=== PATIENT | male | born 1940 | race Caucasian/White ===

== ENCOUNTER 2017-04-27 22:41 | Observation (INO) ==
[2017-04-27] MEDS ORDERED: 0.9 % Sodium Chloride 1,000 ML IVC ONE ×2 (22:44→23:55)
[2017-04-27] MEDS ORDERED: Azithromycin 500 MG in D5% in Water 250 ML IVPB ONE (22:44)
[2017-04-27] MEDS ORDERED: Ipratropium/Albuterol Neb 3 ML IH ONE (22:46)
--- NOTE | 2017-04-27 22:48 | Emergency Department Note ---
Disposition Clinical Impression: Community acquired pneumonia Disposition: Home, Self-Care Condition: Fair Referrals: NONE,PCP [Primary Care Provider] - Forms: ED Satisfaction Letter Time of Disposition: 01:14 ([facility]) SOB HPI - General Chief Complaint: ED Shortness of Breath/Dyspnea Stated Complaint: SOB Time Seen by Provider: 04/27/17 22:43 Source: patient, EMS Mode of arrival: EMS Limitations: physical limitation (due to dyspnea), age Nursing Notes Reviewed: Yes Vital Signs Reviewed: Yes - History of Present Illness Pt Subjective Complaint: shortness of breath, cough Onset (ago): day(s) (1) Context: recent illness Severity: severe Consistency/Duration: gradually worsening Improves with: nothing Worsens with: exertion Known history of: COPD, congestive heart failure, recurrent pneumonia Associated symptoms: Reports: fever, cough, wheezing, sputum production. Denies : chest pain, pain with inspiration, orthopnea, lower extremity pain, polyuria, polydipsia, parasthesias, palpitations, hemoptysis, diaphoresis, nausea/vomiting , syncope, abdominal pain, rash, sense of impending doom Treatment prior to arrival: bronchodilator Cough present: Yes Cough Description: Involuntary, Productive, Strong Cough Frequency: Intermittent Sputum production: Yes Sputum Amount: Moderate Sputum Color: Yellow - Related Data Home Medications Medication Instructions Recorded Confirmed Bisacodyl [Woman's Laxative] 5 mg PO DAILY PRN 04/27/17 04/27/17 Clopidogrel [Plavix] 75 mg PO DAILY 04/27/17 04/27/17 Docusate [Colace] 100 mg PO BID 04/27/17 04/27/17 HYDROcodone/Acet 5/325 mg [[place] 2 tab PO DAILY PRN 04/27/17 04/27/17 5-325 mg] Levothyroxine [Synthroid] 150 mcg PO DAILY 04/27/17 04/27/17 MOM Conc [Milk of Magnesia Conc] 30 ml PO DAILY PRN 04/27/17 04/27/17 Nortriptyline [Pamelor] 25 mg PO DAILY 04/27/17 04/27/17 Phenytoin Sodium Extended 400 mg PO DAILY 04/27/17 04/27/17 [Phenytek] Pramipexole [Mirapex] 0.125 mg PO DAILY 04/27/17 04/27/17 Sertraline [Zoloft] 100 mg PO DAILY 04/27/17 04/27/17 Vit C/Vit E AC/Lut/Mineral 1 1 each PO BID 04/27/17 04/27/17 [Prosight with Lutein Capsule] traZODone [TraZODone] 25 mg PO DAILY 04/27/17 04/27/17 Allergies Allergy/AdvReac Type Severity Reaction Status Date / Time No Known Allergies Allergy Verified 09/26/15 10:21 All systems ED: reviewed and negative except as stated. Review of Systems: As Per HPI Constitutional: Reports: fever, weakness. Denies: chills Eyes: Denies: eye pain, eye discharge ENT ED: Reports: congestion Cardiovascular: Reports: chest pain, dyspnea on exertion. Denies: palpitations Respiratory: Reports: cough, dyspnea, wheezes, sputum production Gastrointestinal: Denies: abdominal pain, nausea, vomiting Genitourinary: Denies: urgency, dysuria Integumentary: Denies: rash, abrasion Neurological: Reports: weakness. Denies: headache Psychiatric: Denies: anxiety Endocrine: Denies: fatigue Hematological/Lymphatic: Denies: easy bleeding Allergic/Immunologic: Denies: facial swelling Past Medical History - Past Medical History Attestation: Yes The following information was validated with the patient. Source: patient, old records reviewed, nursing notes reviewed Medical history: Reports: COPD, CVA, hyperlipidemia, hypertension, thyroid disease Psychiatric history: Reports: anxiety - Social History Smoking Status: Current every day smoker Alcohol use: Reports: occasionally Drug use: Reports: none Physical Exam - General Limitations: no limitations General appearance: alert, in no apparent distress - Head Head exam: atraumatic, normocephalic, normal inspection - Eye Eye exam: Present: normal appearance, PERRL, EOMI - ENT ENT exam: normal exam, normal oropharynx, mucous membranes moist, normal external ear exam - Neck Neck exam: Present: normal inspection, full ROM, trachea midline - Chest Chest inspection: Present: normal inspection, symmetric chest wall rise - Respiratory Respiratory exam: Present: wheezes (and rhonci), prolonged expiratory phase, other (wet cough on exam) - Cardiovascular Cardiovascular exam: Present: regular rate, normal rhythm, normal heart sounds - Abdominal Exam Abdominal exam: Present: soft, Non-Tender, normal bowel sounds. Absent: mass, pulsatile mass - Extremities Exam Extremities exam: Present: other (Left arm and left leg paralysis right arm right leg for range of motion no prominent edema no calf pain or tenderness) - Expanded Lower Extremity Exam Neurovascular/Tendon exam: Present: normal capillary refill, normal fine/light touch Gait: observed and normal - Back Exam Back exam: Present: normal inspection, full ROM. Absent: muscle spasm - Neurological Exam Neurological exam: Present: alert, oriented X3, CN II-XII intact - Psychiatric Psychiatric exam: Present: normal affect, normal mood - Skin Skin exam: Present: warm, dry, intact, normal color Course Course Narrative: Patient seen and examined septic workup was done on the patient patient was started on antibiotics appropriate for sepsis with 2 g of Rocephin and 500 mg of Zithromax patient was then admitted his remained normotensive here still remains tachycardic but this may be secondary to the aerosol treatments and also the fever facial anticipate admission to service of Vital Signs Temperature 101.1 F H 04/27/17 22:45 Pulse Rate 104 04/27/17 22:45 Respiratory Rate 24 04/27/17 22:45 Blood Pressure 176/93 04/27/17 22:45 O2 Sat by Pulse Oximetry 98 04/27/17 22:45 Temperature 101.5 F H 04/28/17 00:55 Pulse Rate 104 04/28/17 00:55 Respiratory Rate 20 04/28/17 00:55 Blood Pressure 118/72 04/28/17 00:55 O2 Sat by Pulse Oximetry 96 04/28/17 00:55 Oxygen Delivery Oxygen Delivery Nasal Cannula Shortness of Breath/Dyspnea - Differential Diagnosis Likely: acute exacerbation of chronic obstructive airways disease, congestive heart failure, pneumonia - Medical Records Medical records reviewed: Yes I reviewed the patient's medical records. - Lab Data Lab results reviewed: Yes I reviewed the patient's lab results. Result diagrams: 04/27/17 23:35 04/27/17 23:35 Lab Results 04/27/17 04/27/17 04/27/17 Range/Units 23:35 23:35 23:35 WBC 14.7 H (4.3-11.1) K/mcL RBC 4.97 (4.19-5.50) M/mcL Hgb 14.9 (12.9-16.9) g/dL Hct 44.6 (37.5-50.1) % MCV 89.7 (83.0-100.0) fL MCH 30.0 (28.0-33.3) pg MCHC 33.4 (31.6-35.5) g/dL RDW 14.1 (11.5-14.5) % Plt Count 235 (140-400) K/mcL MPV 10.8 (9.4-12.4) fL Immature Gran % 0.3 (0-4) % Seg Neutrophils % 86.6 % Lymphocytes % 6.7 % Monocytes % 5.7 % Eosinophils % 0.5 % Basophils % 0.2 % Neutrophils # 12.7 H (1.6-8.9) K/mcL Lymphocytes # 1.0 (0.6-4.6) K/mcL Monocytes # 0.8 (0.0-1.3) K/mcL Eosinophils # 0.1 (0.0-0.6) K/mcL Basophils # 0.0 (0.0-0.2) K/mcL PT (9.4-12.1) Seconds INR APTT 29.9 (26.0-36.0) Seconds VBG Lactic Acid (0.5-2.2) mmol/L Sodium (136-145) mEq/L Potassium (3.5-4.5) mEq/L Chloride (98-109) mEq/L Carbon Dioxide (19-29) mEq/L BUN (8-26) mg/dL Creatinine (0.72-1.25) mg/dL Est GFR ( Amer) (> 60) Est GFR (Non-Af Amer) (> 60) BUN/Creatinine Ratio (6-26) Glucose (70-99) mg/dL Calculated Osmolality (280-300) Calcium (8.6-10.8) mg/dL Total Bilirubin (0.2-1.2) mg/dL AST (5-34) Units/L ALT (0-55) Units/L Alkaline Phosphatase (38-126) Units/L Troponin I (0-0.03) ng/mL B-Natriuretic Peptide 295 H (0-100) pg/mL Serum Total Protein (6.0-8.3) g/dL Albumin (3.5-5.0) g/dL Globulin (2.4-3.5) g/dL Albumin/Globulin Ratio (1.1-2.2) TSH (0.350-4.840) mcIU/mL Phenytoin (10-20) mcg/mL 04/27/17 04/27/17 04/27/17 Range/Units 23:35 23:35 23:35 WBC (4.3-11.1) K/mcL RBC (4.19-5.50) M/mcL Hgb (12.9-16.9) g/dL Hct (37.5-50.1) % MCV (83.0-100.0) fL MCH (28.0-33.3) pg MCHC (31.6-35.5) g/dL RDW (11.5-14.5) % Plt Count (140-400) K/mcL MPV (9.4-12.4) fL Immature Gran % (0-4) % Seg Neutrophils % % Lymphocytes % % Monocytes % % Eosinophils % % Basophils % % Neutrophils # (1.6-8.9) K/mcL Lymphocytes # (0.6-4.6) K/mcL Monocytes # (0.0-1.3) K/mcL Eosinophils # (0.0-0.6) K/mcL Basophils # (0.0-0.2) K/mcL PT 12.1 (9.4-12.1) Seconds INR 1.1 APTT (26.0-36.0) Seconds VBG Lactic Acid (0.5-2.2) mmol/L Sodium 137 (136-145) mEq/L Potassium 4.1 (3.5-4.5) mEq/L Chloride 103 (98-109) mEq/L Carbon Dioxide 22 (19-29) mEq/L BUN 20 (8-26) mg/dL Creatinine 0.87 (0.72-1.25) mg/dL Est GFR ( Amer) > 60 (> 60) Est GFR (Non-Af Amer) > 60 (> 60) BUN/Creatinine Ratio 23 (6-26) Glucose 128 H (70-99) mg/dL Calculated Osmolality 288 (280-300) Calcium 9.2 (8.6-10.8) mg/dL Total Bilirubin 0.2 (0.2-1.2) mg/dL AST 20 (5-34) Units/L ALT 29 (0-55) Units/L Alkaline Phosphatase 249 H (38-126) Units/L Troponin I 0.00 (0-0.03) ng/mL B-Natriuretic Peptide (0-100) pg/mL Serum Total Protein 7.9 (6.0-8.3) g/dL Albumin 3.2 L (3.5-5.0) g/dL Globulin 4.7 H (2.4-3.5) g/dL Albumin/Globulin Ratio 0.7 L (1.1-2.2) TSH (0.350-4.840) mcIU/mL Phenytoin (10-20) mcg/mL 04/27/17 04/27/17 Range/Units 23:35 23:35 WBC (4.3-11.1) K/mcL RBC (4.19-5.50) M/mcL Hgb (12.9-16.9) g/dL Hct (37.5-50.1) % MCV (83.0-100.0) fL MCH (28.0-33.3) pg MCHC (31.6-35.5) g/dL RDW (11.5-14.5) % Plt Count (140-400) K/mcL MPV (9.4-12.4) fL Immature Gran % (0-4) % Seg Neutrophils % % Lymphocytes % % Monocytes % % Eosinophils % % Basophils % % Neutrophils # (1.6-8.9) K/mcL Lymphocytes # (0.6-4.6) K/mcL Monocytes # (0.0-1.3) K/mcL Eosinophils # (0.0-0.6) K/mcL Basophils # (0.0-0.2) K/mcL PT (9.4-12.1) Seconds INR APTT (26.0-36.0) Seconds VBG Lactic Acid 2.6 H (0.5-2.2) mmol/L Sodium (136-145) mEq/L Potassium (3.5-4.5) mEq/L Chloride (98-109) mEq/L Carbon Dioxide (19-29) mEq/L BUN (8-26) mg/dL Creatinine (0.72-1.25) mg/dL Est GFR ( Amer) (> 60) Est GFR (Non-Af Amer) (> 60) BUN/Creatinine Ratio (6-26) Glucose (70-99) mg/dL Calculated Osmolality (280-300) Calcium (8.6-10.8) mg/dL Total Bilirubin (0.2-1.2) mg/dL AST (5-34) Units/L ALT (0-55) Units/L Alkaline Phosphatase (38-126) Units/L Troponin I (0-0.03) ng/mL B-Natriuretic Peptide (0-100) pg/mL Serum Total Protein (6.0-8.3) g/dL Albumin (3.5-5.0) g/dL Globulin (2.4-3.5) g/dL Albumin/Globulin Ratio (1.1-2.2) TSH 2.764 (0.350-4.840) mcIU/mL Phenytoin 13.0 (10-20) mcg/mL - Radiology Data Radiology results reviewed: Yes I reviewed the patient's radiology results. ITS Impressions Chest X-Ray 04/27/17 22:43 IMPRESSION: 1. Mild vascular congestion/interstitial prominence as before. 2. Stable cardiomegaly. 3. Bibasilar opacities are felt to represent atelectatic changes rather than consolidation/pneumonia. D/ / Holden Patterson MD / Holden Patterson MD Interpreting Provider: Holden Patterson MD ITS Impressions Chest X-Ray 04/27/17 22:43 IMPRESSION: 1. Mild vascular congestion/interstitial prominence as before. 2. Stable cardiomegaly. 3. Bibasilar opacities are felt to represent atelectatic changes rather than consolidation/pneumonia. D/ / Holden Patterson MD / Holden Patterson MD Interpreting Provider: Holden Patterson MD Chest CT 04/28/17 00:19 IMPRESSION: 1. No focal airspace disease. 2. Moderate emphysema. 3. Moderate hiatal hernia. D/ / Fabián Ledezma MD / Fabián Ledezma MD Interpreting Provider: Fabián Ledezma MD - EKG Data EKG attestation: Yes I reviewed and interpreted this EKG. EKG results narrative: Sinus tach left ventricular hypertrophy rate 113 OH 190 QRS 113 QT 329 axis -20 Critical Care Time Critical Care Time: Yes Total Critical Care Time: 35 Attestation: Critical care performed:35 mins for meeting the sepsis criteria and managing fluids and antibiotics and discussion with family and attending phycian for admission Time is exclusive of separately billable procedures. Time includes: direct patient care, patient reassessment, coordination of patient care, interpretation of data (laboratory data, radiology data, and respiratory data), review of patient's medical records, medical consultation and documentation of patient care. Procedures included in critical care time: Procedures excluded from critical care time:
[2017-04-27 23:46] LABS: Basophils % 0.2 %; Eosinophils # 0.1 K/mcL (0.0-0.6); Eosinophils % 0.5 %; Hematocrit 44.6 % (37.5-50.1); Hemoglobin 14.9 g/dL (12.9-16.9); Immature Granulocytes % 0.3 % (0-4); Lymphocytes % 6.7 %; Mean Corpuscular HGB Conc 33.4 g/dL (31.6-35.5); Mean Corpuscular Volume 89.7 fL (83.0-100.0); Mean Platelet Volume 10.8 fL (9.4-12.4); Monocytes # 0.8 K/mcL (0.0-1.3); Monocytes % 5.7 %; Platelet Count 235 K/mcL (140-400); Red Blood Count 4.97 M/mcL (4.19-5.50); Red Cell Distribution Width 14.1 % (11.5-14.5); Segmented Neutrophils % 86.6 %
[2017-04-27 23:48] LABS: Neutrophils # 12.7 K/mcL (1.6-8.9)
[2017-04-28] LABS: INR 1.1; Prothrombin Time 12.1 Seconds (9.4-12.1)
[2017-04-28 00:03] LABS: Alanine Aminotransferase 29 Units/L (0-55); Albumin 3.2 g/dL (3.5-5.0); Albumin/Globulin Ratio 0.7 (1.1-2.2); Alkaline Phosphatase 249 Units/L (38-126); Aspartate Amino Transferase 20 Units/L (5-34); BUN/Creatinine Ratio 23 (6-26); Bilirubin,Total 0.2 mg/dL (0.2-1.2); Blood Urea Nitrogen 20 mg/dL (8-26); Calcium 9.2 mg/dL (8.6-10.8); Carbon Dioxide 22 mEq/L (19-29); Chloride 103 mEq/L (98-109); Globulin 4.7 g/dL (2.4-3.5); Glucose 128 mg/dL (70-99); Osmolality,Calculated 288 (280-300); Potassium 4.1 mEq/L (3.5-4.5); Sodium 137 mEq/L (136-145); Total Protein 7.9 g/dL (6.0-8.3); eGFR For African Americans > 60 (> 60); eGFR For Non-African Americans > 60 (> 60)
[2017-04-28 00:23] LABS: Thyroid Stimulating Hormone 2.764 mcIU/mL (0.350-4.840)
[2017-04-28] MEDS ORDERED: Ibuprofen 600 MG TABLET PO ONE ×2 (01:20→02:13)
[2017-04-28] MEDS ORDERED: MOM Conc 10 ML UD.LIQ PO PRN (02:13)
[2017-04-28] MEDS ORDERED: 0.9 % Sodium Chloride 1,000 ML IVC SCH (02:13)
[2017-04-28] MEDS ORDERED: *HR* HYDROcodone/Acet 5/325 mg TABLET PO PRN (02:13)
[2017-04-28] MEDS ORDERED: Acetaminophen 325 MG TABLET PO PRN (02:13)
[2017-04-28] MEDS ORDERED: 0.9 % Sodium Chloride 1,000 ML IVC ONE (02:13)
[2017-04-28] MEDS ORDERED: Ibuprofen 400 MG TABLET PO PRN (02:13)
[2017-04-28] MEDS ORDERED: Naloxone 0.4 MG/ML INJ IVP PRN (02:13)
[2017-04-28] MEDS: Ipratropium/Albuterol Neb 3 ML IH PRN (03:55)
[2017-04-28 09:00] LABS: Hematocrit 36.7 % (37.5-50.1); Immature Granulocytes % 0.5 % (0-4); Lymphocytes % 8.7 %; Mean Corpuscular HGB Conc 32.7 g/dL (31.6-35.5); Mean Corpuscular Hemoglobin 30.4 pg (28.0-33.3); Mean Corpuscular Volume 92.9 fL (83.0-100.0); Mean Platelet Volume 10.8 fL (9.4-12.4); Platelet Count 176 K/mcL (140-400); Red Blood Count 3.95 M/mcL (4.19-5.50); Red Cell Distribution Width 14.3 % (11.5-14.5); Segmented Neutrophils % 81.4 %
[2017-04-28] MEDS ORDERED: traZODone 50 MG TABLET PO SCH (09:00)
[2017-04-28 09:01] LABS: Basophils % 0.3 %; Eosinophils % 0.1 %; Lymphocytes # 1.3 K/mcL (0.6-4.6); Monocytes # 1.3 K/mcL (0.0-1.3); Neutrophils # 12.1 K/mcL (1.6-8.9)
[2017-04-28 09:18] LABS: BUN/Creatinine Ratio 24 (6-26); Blood Urea Nitrogen 17 mg/dL (8-26); Calcium 7.9 mg/dL (8.6-10.8); Carbon Dioxide 20 mEq/L (19-29); Chloride 107 mEq/L (98-109); Glucose 117 mg/dL (70-99); Osmolality,Calculated 287 (280-300); Sodium 137 mEq/L (136-145); eGFR For African Americans > 60 (> 60); eGFR For Non-African Americans > 60 (> 60)
[2017-04-28] MEDS: Multivit/Ca/Min/Fe/FA 1 TAB TABLET PO SCH ×3 (11:00→20:27)
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
[2017-04-28] MEDS ORDERED: traZODone 50 MG TABLET PO PRN (16:07)
[2017-04-28] MEDS: Lactobacillus 1 EACH CAP.SPRINK PO SCH (20:27)
[2017-04-28] MEDS ORDERED: Azithromycin 500 MG in D5% in Water 250 ML IVPB SCH (23:00)
[2017-04-29] MEDS: Ipratropium/Albuterol Neb 3 ML IH PRN (01:51)
[2017-04-29 05:01] LABS: Basophils % 0.2 %; Eosinophils # 0.1 K/mcL (0.0-0.6); Eosinophils % 0.5 %; Hematocrit 37.6 % (37.5-50.1); Hemoglobin 12.4 g/dL (12.9-16.9); Immature Granulocytes % 0.4 % (0-4); Lymphocytes # 1.3 K/mcL (0.6-4.6); Lymphocytes % 11.2 %; Mean Corpuscular Hemoglobin 29.9 pg (28.0-33.3); Mean Corpuscular Volume 90.6 fL (83.0-100.0); Mean Platelet Volume 10.9 fL (9.4-12.4); Monocytes # 0.7 K/mcL (0.0-1.3); Monocytes % 6.6 %; Platelet Count 197 K/mcL (140-400); Red Blood Count 4.15 M/mcL (4.19-5.50); Red Cell Distribution Width 14.2 % (11.5-14.5); Segmented Neutrophils % 81.1 %
[2017-04-29 05:04] LABS: Neutrophils # 9.1 K/mcL (1.6-8.9)
[2017-04-29 05:15] LABS: BUN/Creatinine Ratio 16 (6-26); Blood Urea Nitrogen 11 mg/dL (8-26); Calcium 8.7 mg/dL (8.6-10.8); Carbon Dioxide 20 mEq/L (19-29); Chloride 106 mEq/L (98-109); Glucose 109 mg/dL (70-99); Osmolality,Calculated 288 (280-300); Potassium 3.6 mEq/L (3.5-4.5); Sodium 139 mEq/L (136-145); eGFR For African Americans > 60 (> 60); eGFR For Non-African Americans > 60 (> 60)
[2017-04-29] MEDS: Lactobacillus 1 EACH CAP.SPRINK PO SCH (08:02)
[2017-04-29] MEDS: Multivit/Ca/Min/Fe/FA 1 TAB TABLET PO SCH (08:02)
--- NOTE | 2017-04-29 10:02 | Discharge Summary ---
Date of Encounter: 04/29/17 Time of Encounter: 09:50 - Discharge Diagnosis (1) Neutrophilic leukocytosis Priority: Primary Status: Acute - Discharge Medications Prescriptions: Cefuroxime PO [Ceftin] 500 mg PO Q12HR 3 Days Azithromycin [Zithromax] 250 mg PO DAILY 3 Days Lactobacillus [Culturelle] 1 each PO BID 3 Days Home Medications: Bisacodyl [Woman's Laxative] 5 mg PO DAILY PRN 04/27/17 [History] Clopidogrel [Plavix] 75 mg PO DAILY 04/27/17 [History] Docusate [Colace] 100 mg PO BID 04/27/17 [History] HYDROcodone/Acet 5/325 mg [[place] 5-325 mg] 2 tab PO DAILY PRN 04/27/17 [History] Levothyroxine [Synthroid] 150 mcg PO DAILY 04/27/17 [History] MOM Conc [MILK OF MAGNESIA conc] 30 ml PO DAILY PRN 04/27/17 [History] Nortriptyline [Pamelor] 25 mg PO DAILY 04/27/17 [History] Phenytoin Sodium Extended [Phenytek] 400 mg PO DAILY 04/27/17 [History] Pramipexole [Mirapex] 0.125 mg PO DAILY 04/27/17 [History] Sertraline [Zoloft] 100 mg PO DAILY 04/27/17 [History] Vit C/Vit E AC/Lut/Mineral 1 [Prosight with Lutein Capsule] 1 each PO BID [History] traZODone [TraZODone] 25 mg PO DAILY 04/27/17 [History] Azithromycin [Zithromax] 250 mg PO DAILY 3 Days 04/29/17 [Rx] Cefuroxime PO [Ceftin] 500 mg PO Q12HR 3 Days 04/29/17 [Rx] Lactobacillus [Culturelle] 1 each PO BID 3 Days 04/29/17 [Rx] Allergies/Adverse Reactions: 3 Allergy/AdvReac Type Severity Reaction Status Date / Time No Known Allergies Allergy Verified 09/26/15 10:21 Date of admission: 04/28/17 01:35 Primary care physician: Turner Pimentel M.D. Consults: 04/28/17 03:29 Consult to Nutrition [CONS] Routine Comment: Consulting Provider: NUTRITION Reason for Dietary Consult: MST Score Consult to Gang Sawyer [CONS] Routine Reason for SW Consult: return to [facility] - Patient Status Disposition: Transfer SNF Condition: Fair Functional capacity at discharge: wheelchair bound Overall status at discharge: patient is progressing back to baseline - Discharge Instructions - Diet and Activity Activity: resume usual activities as tolerated Diet: advance to your usual diet Hospital course: Mr. Moody is a 76 year old male who was sent to emergency room for evaluation after alf staff noted him to have fever and cough. He was evaluated in emergency room and felt to have possible pneumonia. He was admitted to [facility] for ongoing care needs. Initial orders were written by the emergency room physician. I saw him on April 28 and performed a history and physical. He was started on Rocephin and Zithromax in emergency room. I added lactobacillus. Chest CT showed no infiltrate. A UA C/S was ordered but could not be collected because of incontinence. He remained afebrile after admission. WBC improved to 11.2 on April 29 with slight left shift present. When I saw him on April 29 he appeared stable for discharge back to the SNF. He will follow with me there. He will continue with antibiotic and probiotic for 3 days after discharge. - Time Spent with Patient Total time spent providing and/or coordinating discharge services: - Constitutional Vitals: Temp Pulse Resp BP Pulse Ox 97.5 F L 98 22 161/77 95 04/29/17 07:22 04/29/17 07:22 04/29/17 07:22 04/29/17 07:22 04/29/17 07:22
--- NOTE | 2017-04-29 10:07 | Physician Discharge Referral ---
ExtendedCare Referral Info Transfer To: [facility] Provider in Charge: Margarito Provider in Charge after Transfer: PCP (Margarito) - Diagnosis (1) Neutrophilic leukocytosis Priority: Primary Status: Acute Prognosis: Fair Aware of Diagnosis: Patient Aware of Prognosis: Patient - Transfer Medications Prescriptions: Cefuroxime PO [Ceftin] 500 mg PO Q12HR 3 Days Azithromycin [Zithromax] 250 mg PO DAILY 3 Days Lactobacillus [Culturelle] 1 each PO BID 3 Days Home Medications: Bisacodyl [Woman's Laxative] 5 mg PO DAILY PRN 04/27/17 [History] Clopidogrel [Plavix] 75 mg PO DAILY 04/27/17 [History] Docusate [Colace] 100 mg PO BID 04/27/17 [History] HYDROcodone/Acet 5/325 mg [[place] 5-325 mg] 2 tab PO DAILY PRN 04/27/17 [History] Levothyroxine [Synthroid] 150 mcg PO DAILY 04/27/17 [History] MOM Conc [MILK OF MAGNESIA conc] 30 ml PO DAILY PRN 04/27/17 [History] Nortriptyline [Pamelor] 25 mg PO DAILY 04/27/17 [History] Phenytoin Sodium Extended [Phenytek] 400 mg PO DAILY 04/27/17 [History] Pramipexole [Mirapex] 0.125 mg PO DAILY 04/27/17 [History] Sertraline [Zoloft] 100 mg PO DAILY 04/27/17 [History] Vit C/Vit E AC/Lut/Mineral 1 [Prosight with Lutein Capsule] 1 each PO BID [History] traZODone [TraZODone] 25 mg PO DAILY 04/27/17 [History] Azithromycin [Zithromax] 250 mg PO DAILY 3 Days 04/29/17 [Rx] Cefuroxime PO [Ceftin] 500 mg PO Q12HR 3 Days 04/29/17 [Rx] Lactobacillus [Culturelle] 1 each PO BID 3 Days 04/29/17 [Rx] Allergies/Adverse Reactions: 3 Allergy/AdvReac Type Severity Reaction Status Date / Time No Known Allergies Allergy Verified 09/26/15 10:21 - Respiratory Orders Oxygen / L per min (2 L/m by nasal cannula when necessary to keep sats greater than 90%) Smoking Cessation: Smoking cessation has been advised. For more information, call the [place] Tobacco Quit Line at 7-605-HCGB-NOW. - Mobility Orders Chair - Rehabiliation Orders Rehab Potential: Fair - Diet Orders Regular CERTIFICATION: I certify that the transfer of the above named patient to an Extended Care Facility is necessary for the continuing treatment of the diagnosis listed. The above information is true and accurate reflection of patient's current condition. Confidential - Redisclosure prohibited without a patient's written consent.
[2017-04-29 11:49] VITALS: BP 171/70
--- NOTE | 2017-04-30 15:57 | Electrocardiograph Report ---
[address] [address] Test Date: 2017-04-27 Pat Name: Ronnie Moody Department: [id number] Room: [facility] Gender: M Culinary Intern: [id number] 1940 Requested By: Rocio Watters Order Number: [id number] Reading MD: Juanjose Hughes MD Measurements Intervals [place] Rate: 113 P: 11 ND: 191 QRS: -20 QRSD: 113 T: 81 QT: 329 QTc: 396 Interpretive Statements SINUS TACHYCARDIA LEFT VENTRICULAR HYPERTROPHY AND ST-T CHANGE Electronically Signed On 04-30-2017 15:55:22 EDT by Juanjose Hughes MD
== END 2017-04-29 12:46 ==
LOC: INPPIK 22:41 → EMEROOPIK 22:41 → INPPIK 04-28 02:12
PROVIDERS: ADMIT Internal Medicine; ATTEND Internal Medicine

== ENCOUNTER 2017-10-01 18:57 | Inpatient (IN) ==
--- NOTE | 2017-10-01 19:06 | Emergency Department Note ---
Disposition Clinical Impression: Influenza A, Acute exacerbation of chronic obstructive airways disease, Elevated troponin Disposition: Admitted As Inpatient Condition: Fair Referrals: Turner Pimentel MD [Primary Care Provider] - Forms: ED Satisfaction Letter SOB HPI - General Chief Complaint: ED Shortness of Breath/Dyspnea Stated Complaint: fever efrain Time Seen by Provider: 10/01/17 19:00 Source: patient Mode of arrival: ambulatory Limitations: no limitations Nursing Notes Reviewed: Yes Vital Signs Reviewed: Yes - History of Present Illness Patient presents from extended care facility with complaint of fever shortness of breath and cough. Patient tells me he normally wears oxygen and does not feel short of breath except when he coughs. He says he had a fever and a dry cough for about 2 days and it is not getting better. Denies any chest pain belly pain or other complaints. Family adds the patient fell on Sunday injuring his right hip and would like that x-rayed as well Pt Subjective Complaint: shortness of breath, cough Onset (ago): day(s) (2) Severity: moderate Consistency/Duration: intermittent Improves with: nothing Worsens with: nothing Known history of: COPD Associated symptoms: Reports: fever, cough. Denies: chest pain, sputum production, palpitations, nausea/vomiting, abdominal pain Treatment prior to arrival: oxygen, other (500ml fluid bolus) Cough Description: Involuntary Cough Frequency: Intermittent Sputum production: No - Related Data Home Medications Medication Instructions Recorded Confirmed Bisacodyl [Woman's Laxative] 10 mg PO DAILY PRN 04/27/17 10/01/17 Clopidogrel [Plavix] 75 mg PO DAILY 04/27/17 10/01/17 Docusate [Colace] 100 mg PO BID 04/27/17 10/01/17 HYDROcodone/Acet 5/325 mg [[place] 2 tab PO DAILY PRN 04/27/17 10/01/17 5-325 mg] Levothyroxine [Synthroid] 175 mcg PO DAILY 04/27/17 10/01/17 MOM Conc [MILK OF MAGNESIA conc] 30 ml PO DAILY PRN 04/27/17 10/01/17 Nortriptyline [Pamelor] 25 mg PO DAILY 04/27/17 10/01/17 Phenytoin Sodium Extended 400 mg PO DAILY 04/27/17 10/01/17 [Phenytek] Pramipexole [Mirapex] 0.125 mg PO DAILY 04/27/17 10/01/17 Sertraline [Zoloft] 100 mg PO DAILY 04/27/17 10/01/17 Vit C/Vit E AC/Lut/Mineral 1 1 each PO BID 04/27/17 10/01/17 [Prosight with Lutein Capsule] traZODone [TraZODone] 25 mg PO DAILY 04/27/17 10/01/17 Acetaminophen [Non-Aspirin Extra 500 mg PO Q6H 10/01/17 10/01/17 Strength] Dextromethorphan HBr [Robitussin] 15 mg PO TID 10/01/17 10/01/17 OLANZapine [Zyprexa] 5 mg PO HS 10/01/17 10/01/17 Allergies Allergy/AdvReac Type Severity Reaction Status Date / Time No Known Allergies Allergy Verified 09/26/15 10:21 All systems ED: reviewed and negative except as stated. Review of Systems: As Per HPI Constitutional: Reports: as per HPI, fever Eyes: Denies: eye pain, eye discharge, vision change ENT ED: Denies: ear pain, throat pain, dental pain, hearing loss, epistaxis, congestion, dysphagia Cardiovascular: Denies: chest pain, palpitations, dyspnea on exertion, edema, syncope Respiratory: Reports: as per HPI, cough Gastrointestinal: Denies: abdominal pain, nausea, vomiting, diarrhea, constipation, hematemesis, melena, hematochezia Genitourinary: Denies: urgency, dysuria, frequency, hematuria Musculoskeletal: Denies: back pain, neck pain, arthralgia, myalgia Integumentary: Denies: rash, abrasion, lesions Neurological: Denies: headache, weakness, numbness, paresthesias, confusion, abnormal gait, vertigo Psychiatric: Denies: anxiety, depression, suicidal thoughts, homicidal thoughts , auditory hallucinations, visual hallucinations Endocrine: Denies: fatigue Hematological/Lymphatic: Denies: easy bleeding, easy bruising Allergic/Immunologic: Denies: facial swelling, urticaria Past Medical History - Past Medical History Attestation: Yes The following information was validated with the patient. Source: patient Medical history: Reports: COPD, CVA, hyperlipidemia, hypertension, thyroid disease Psychiatric history: Reports: anxiety - Social History Smoking Status: Current every day smoker Smokeless Tobacco Status: No Alcohol use: Reports: occasionally Drug use: Reports: none Physical Exam - General Limitations: no limitations General appearance: alert, in no apparent distress - Head Head exam: atraumatic, normocephalic, normal inspection - Eye Eye exam: Present: normal appearance, PERRL, EOMI - ENT ENT exam: normal exam, normal oropharynx, mucous membranes moist - Neck Neck exam: Present: normal inspection, full ROM, trachea midline - Chest Chest inspection: Present: normal inspection, symmetric chest wall rise - Respiratory Respiratory exam: Present: normal lung sounds bilaterally - Cardiovascular Cardiovascular exam: Present: regular rate, normal rhythm, normal heart sounds - Abdominal Exam Abdominal exam: Present: soft, Non-Tender. Absent: tenderness, distention, guarding, rebound, rigidity - Extremities Exam Extremities exam: Present: normal inspection - Neurological Exam Neurological exam: Present: alert, oriented X3 - Psychiatric Psychiatric exam: Present: normal affect, normal mood - Skin Skin exam: Present: warm, dry, intact Course Course Narrative: Patient was signed out to me by the off-going physician, Dr. León. [facility], shortness of breath and fever. Patient received steroids and DuoNeb in the ED and labs and EKG were obtained. Patient did apparently have some T-wave inversions on his EKG although he denies any chest pain. Laboratory studies did reveal that he is positive for influenza A. He was started on Tamiflu. Troponin was elevated at 0.9. I suspect this is likely strain from his current illness including COPD exacerbation as well as the influenza. He apparently also complained of some right hip pain from falling from the toilet a few days ago. An initial x-ray showed a questionable femoral neck fracture however follow-up CT scan did not reveal any fracture. Patient is not having any current pain at this time. Given his positive flu, chronic medical conditions that place him at risk for complications from influenza and elevated troponin he would benefit from admission and monitoring. Patient and family are in agreement. I spoke to the hospitalist foundation director, Dr. Pimentel, who is also the patient's PCP, who has agreed to admit the patient. Shortness of Breath/Dyspnea - Differential Diagnosis Likely: acute exacerbation of chronic obstructive airways disease - Medical Records Medical records reviewed: Yes I reviewed the patient's medical records. - Lab Data Lab results reviewed: Yes I reviewed the patient's lab results. Result diagrams: 10/01/17 19:28 10/01/17 19:28 - Radiology Data Radiology results reviewed: Yes I reviewed the patient's radiology results. ITS Impressions Chest X-Ray 10/01/17 19:07 IMPRESSION: Low lung volume study showing bibasilar airspace disease, likely atelectasis. D/ / Tabby Rosales Cha, MD / Tabby Rosales Cha, MD Interpreting Provider: Tabby Rosales Cha, MD Hip X-Ray 10/01/17 19:23 IMPRESSION: Questionable nondisplaced fracture of the femoral neck. Further evaluation with MRI would be helpful. D/ / Tabby Rosales Cha, MD / Tabby Rosales Cha, MD Interpreting Provider: Tabby Rosales Cha, MD Hip CT 10/01/17 20:01 IMPRESSION: Mild degenerative changes right hip. No acute fracture. D/ / Yamini Alvarado MD / Yamini Alvarado MD Interpreting Provider: Yamini Alvarado MD - EKG Data EKG attestation: Yes I reviewed and interpreted this EKG. EKG results narrative: EKG shows sinus rhythm with occasional PVC. He has anterior lateral T-wave inversion rate is 92 bpm MO interval of 181 ms QRS duration 118 ms R axis of -3 degrees QTc interval 453 ms QT interval is 404 ms S.B.A.R. - S.B.A.R. Situation: Demographics Background: Presenting Complaint Assessment: Vital Signs, Course and respsone to treatment, Exam Concerns, Patient/Family Expectation, Pertinant Lab Results, Outstanding Labs S.B.A.R. Report Given to: Dr. Long SArtiB.AChapo Repor Time: 19:00
[2017-10-01] MEDS ORDERED: methylPREDNISolone 125 MG/2 ML VIAL IVP ONE (19:09)
[2017-10-01] MEDS ORDERED: Ipratropium/Albuterol Neb 3 ML IH ONE (19:09)
[2017-10-01 19:37] LABS: Basophils % 0.1 %; Hematocrit 39.9 % (37.5-50.1); Hemoglobin 12.9 g/dL (12.9-16.9); Immature Granulocytes % 0.4 % (0-4); Lymphocytes # 0.8 K/mcL (0.6-4.6); Mean Corpuscular HGB Conc 32.3 g/dL (31.6-35.5); Mean Corpuscular Hemoglobin 29.3 pg (28.0-33.3); Mean Corpuscular Volume 90.7 fL (83.0-100.0); Mean Platelet Volume 11.2 fL (9.4-12.4); Monocytes # 0.8 K/mcL (0.0-1.3); Monocytes % 9.3 %; Neutrophils # 6.8 K/mcL (1.6-8.9); Platelet Count 217 K/mcL (140-400); Segmented Neutrophils % 81.2 %
[2017-10-01 20:07] LABS: BUN/Creatinine Ratio 22 (6-26); Blood Urea Nitrogen 25 mg/dL (8-23); Calcium 8.6 mg/dL (8.6-10.3); Carbon Dioxide 24 mEq/L (23-29); Chloride 106 mEq/L (98-107); Glucose 147 mg/dL (70-105); Osmolality,Calculated 297 (280-300); Potassium 3.8 mEq/L (3.5-5.1); Sodium 140 mEq/L (136-145); eGFR For Non-African Americans > 60 (> 60)
[2017-10-01] MEDS ORDERED: Ibuprofen 600 MG TABLET PO ONE (22:00)
[2017-10-01] MEDS ORDERED: Naloxone 0.4 MG/ML INJ IVP PRN ×2 (22:29→23:17)
[2017-10-01] MEDS ORDERED: MOM Conc 10 ML UD.LIQ PO PRN (23:17)
[2017-10-01] MEDS ORDERED: *HR* HYDROcodone/Acet 5/325 mg TABLET PO PRN (23:17)
[2017-10-02] MEDS ORDERED: Ipratropium/Albuterol Neb 3 ML IH SCH
[2017-10-02] MEDS: Ipratropium/Albuterol Neb 3 ML IH SCH ×6 (00:19→20:22)
[2017-10-02] MEDS: OLANZapine 5 MG TAB.RAPDIS PO SCH ×2 (02:35→20:34)
[2017-10-02] MEDS: Multivit/Ca/Min/Fe/FA 1 TAB TABLET PO SCH ×2 (08:40→20:34)
[2017-10-02] MEDS: traZODone 50 MG TABLET PO SCH (08:40)
[2017-10-02] MEDS ORDERED: Dextromethorphan Polistrx(12h) 30 MG/5 ML UDC PO SCH (09:00)
--- NOTE | 2017-10-02 12:35 | Internal Med History&Physical ---
Date of Encounter: 10/02/17 Time of Encounter: 12:15 Assessment and Plan (1) Influenza A Current visit: Yes Status: Acute He has been started on Tamiflu. (2) Acute exacerbation of chronic obstructive airways disease Current visit: Yes Status: Acute Continue duo nebs (3) Hypothyroidism Current visit: Yes Status: Acute We will check TSH in a.m. Qualifiers: Hypothyroidism type: unspecified Qualified Code(s): E03.9 - Hypothyroidism , unspecified (4) Left hemiparesis Current visit: Yes Status: Acute Continue Plavix (5) Elevated brain natriuretic peptide (BNP) level Current visit: Yes Status: Acute Will check an a.m. Internal Medicine - H&P: HPI Chief complaint: dyspnea Admitted From: Emergency Dept Plans for Post Hospital Care: Transfer Shelter Facility History of present illness: Mr. Moody is a 77 year old male who was sent to emergency room after he had fever reportedly 103 at the group home with increased dyspnea and cough. He was evaluated in emergency room and found to have influenza A. Chest x-ray showed bibasilar airspace disease likely atelectasis. He had normal WBC but left shift was present. There was significantly elevated troponin but family declined further aggressive workup. He was admitted to [facility] floor for ongoing care needs. He has had CVA and has underlying dementia and cannot give additional reliable history. Past Med Surg Social Fam HX - Past Medical History Medical history: COPD, CVA, hyperlipidemia, hypertension, thyroid disease Psychiatric history: anxiety - Social History Smoking Status: Current every day smoker Smokeless Tobacco Status: No Alcohol use: occasionally Drug use: none Internal Medicine - H&P: Meds Bisacodyl [Woman's Laxative] 10 mg PO DAILY PRN 04/27/17 [History] Clopidogrel [Plavix] 75 mg PO DAILY 04/27/17 [History] Docusate [Colace] 100 mg PO BID 04/27/17 [History] HYDROcodone/Acet 5/325 mg [[place] 5-325 mg] 2 tab PO DAILY PRN 04/27/17 [History] Levothyroxine [Synthroid] 175 mcg PO DAILY 04/27/17 [History] MOM Conc [MILK OF MAGNESIA conc] 30 ml PO DAILY PRN 04/27/17 [History] Nortriptyline [Pamelor] 25 mg PO DAILY 04/27/17 [History] Phenytoin Sodium Extended [Phenytek] 400 mg PO DAILY 04/27/17 [History] Pramipexole [Mirapex] 0.125 mg PO DAILY 04/27/17 [History] Sertraline [Zoloft] 100 mg PO DAILY 04/27/17 [History] Vit C/Vit E AC/Lut/Mineral 1 [Prosight with Lutein Capsule] 1 each PO BID [History] traZODone [TraZODone] 25 mg PO DAILY 04/27/17 [History] Acetaminophen [Non-Aspirin Extra Strength] 500 mg PO Q6H 10/01/17 [History] Dextromethorphan HBr [Robitussin] 15 mg PO TID 10/01/17 [History] OLANZapine [Zyprexa] 5 mg PO HS 10/01/17 [History] 3 Allergy/AdvReac Type Severity Reaction Status Date / Time No Known Allergies Allergy Verified 09/26/15 10:21 All Systems PM: A 10-system review of systems was performed and is negative for pertinent findings except as documented above in the HPI. Review of systems: Review of systems is obtained from old records. Gen.: His weight has been stable in the past few months Cardiovascular: He has history of hypertension but no known VT heart failure angina DVT or pulmonary embolus Respiratory: He smoked from age [age] up to 2 packs per day. He states he still smokes at the group home. He wears oxygen when necessary at the group home. He has not had pulmonary function tests. Chest CT 04/28/2017 showed moderate emphysema changes without lymphadenopathy or masses. 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 He has been in a SNF since 2011. He has not had seizures. Endocrine: He has hypothyroidism and hyperlipidemia but no known diabetes Hematology/oncology: No history of blood disorders cancers or anemia Psychiatric: He has history of depression but no significant anxiety or other mental health issues Muscle skeletal: He has no known arthritis gout or other bone joint or muscle disorders. - Constitutional Vitals: Temp Pulse Resp BP Pulse Ox 98.2 F 84 16 108/58 949 10/02/17 11:00 10/02/17 11:00 10/02/17 12:10 10/02/17 11:00 10/02/17 12:10 Exam: General: He is a well-developed well-nourished male lying in bed who appears minimally dyspneic at present time HEENT: Head is atraumatic and normocephalic. Eyes: EOMI. There is no scleral icterus. Mouth: Mucosa is moist. Neck: Supple and nontender. There is no thyromegaly or adenopathy noted. Heart: Regular without murmurs gallops or ectopics Lungs: No wheezes or crackles are heard. Abdomen: Soft and nontender. No masses or guarding are noted. Extremities: There is no cyanosis edema or clubbing noted. Dorsalis pedis and posttibial pulses are trace palpable bilaterally. 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 Neurologic: Mental status: He is awake and answers a few questions but is a poor historian. He does not know his age, length of stay, or location. Cranial nerves: Smile is symmetric. Forehead wrinkles bilaterally. Tongue protrudes midline. EOMI. Motor: He does not move his left arm. The right arm moves normally. He moves his legs minimally. Cerebellar: Finger to nose is intact with the right arm. He cannot move his left arm. Skin: Warm and dry Internal Med - H&P Results - Labs CBC & Chem 7: 10/01/17 19:28 10/01/17 19:28 Labs: Cardiac Enzymes 10/02/17 Range/Units 04:00 Troponin I 0.40 H* (< 0.04) ng/mL - VTE Reasons for not Prescribing Prophylaxis: Treatment not Indicated - Low risk for VTE
--- NOTE | 2017-10-02 18:31 | Electrocardiograph Report ---
[address] [address] Test Date: 2017-10-01 Pat Name: Ronnie Moody Department: [id number] Room: [facility] Gender: M Social Secretary: [id number] 1940 Requested By: Bruno Call Order Number: [id number] Reading MD: Remedios Trejo Measurements Intervals [place] Rate: 92 P: 27 NC: 181 QRS: -3 QRSD: 118 T: 170 QT: 404 QTc: 453 Interpretive Statements SINUS RHYTHM WITH OCCASIONAL VENTRICULAR PREMATURE COMPLEXES MODERATE INTRAVENTRICULAR CONDUCTION DELAY [110+ ms QRS DURATION] ST DEVIATION AND MARKED T-WAVE ABNORMALITY, CONSIDER ANTEROLATERAL ISCHEMIA [- 0.5+ mV T WAVE IN I/aVL/V3-V6] Electronically Signed On 10-02-2017 18:29:56 EST by Remedios Trejo
[2017-10-03] MEDS: Ipratropium/Albuterol Neb 3 ML IH SCH ×6 (00:29→20:26)
[2017-10-03 06:11] LABS: Basophils % 0.2 %; Eosinophils # 0.2 K/mcL (0.0-0.6); Eosinophils % 3.5 %; Hematocrit 34.4 % (37.5-50.1); Hemoglobin 11.2 g/dL (12.9-16.9); Immature Granulocytes % 0.2 % (0-4); Lymphocytes # 1.6 K/mcL (0.6-4.6); Mean Corpuscular HGB Conc 32.6 g/dL (31.6-35.5); Mean Corpuscular Hemoglobin 29.1 pg (28.0-33.3); Mean Corpuscular Volume 89.4 fL (83.0-100.0); Mean Platelet Volume 11.6 fL (9.4-12.4); Monocytes # 0.5 K/mcL (0.0-1.3); Monocytes % 10.2 %; Neutrophils # 2.5 K/mcL (1.6-8.9); Platelet Count 194 K/mcL (140-400); Red Blood Count 3.85 M/mcL (4.19-5.50); Red Cell Distribution Width 14.2 % (11.5-14.5); Segmented Neutrophils % 51.9 %
[2017-10-03 07:02] LABS: Alanine Aminotransferase 68 Units/L (7-52); Albumin 2.8 g/dL (3.5-5.7); Albumin/Globulin Ratio 0.9 (1.1-2.2); Alkaline Phosphatase 111 Units/L (34-104); Aspartate Amino Transferase 89 Units/L (13-39); BUN/Creatinine Ratio 31 (6-26); Bilirubin,Total 0.2 mg/dL (0.3-1.0); Blood Urea Nitrogen 26 mg/dL (8-23); Calcium 8.1 mg/dL (8.6-10.3); Carbon Dioxide 24 mEq/L (23-29); Chloride 105 mEq/L (98-107); Glucose 103 mg/dL (70-105); Osmolality,Calculated 297 (280-300); Sodium 141 mEq/L (136-145); Total Protein 5.8 g/dL (6.4-8.9); eGFR For Non-African Americans > 60 (> 60)
[2017-10-03] MEDS: traZODone 50 MG TABLET PO SCH (09:07)
[2017-10-03] MEDS: Multivit/Ca/Min/Fe/FA 1 TAB TABLET PO SCH ×2 (09:08→21:07)
--- NOTE | 2017-10-03 09:57 | Internal Med Progress Note ---
Date of Encounter: 10/03/17 Time of Encounter: 09:50 - Assessment and plan (1) Influenza A Current Visit: Yes Status: Acute Assessment and plan: October 03. Continue Tamiflu (2) Acute exacerbation of chronic obstructive airways disease Current Visit: Yes Status: Acute Assessment and plan: October 03. Continue duo nebs (3) Hypothyroidism Current Visit: Yes Status: Acute Assessment and plan: October 03. TSH was normal at 2.662. Continue present dose Synthroid. Qualifiers: Hypothyroidism type: unspecified Qualified Code(s): E03.9 - Hypothyroidism , unspecified (4) Left hemiparesis Current Visit: Yes Status: Acute Assessment and plan: October 03. Continue Plavix (5) Elevated brain natriuretic peptide (BNP) level Current Visit: Yes Status: Acute Assessment and plan: October 03. Significantly elevated at 1294. Will add Imdur (6) Hypokalemia Current Visit: Yes Status: Acute Assessment and plan: October 03. Potassium level low at 3.0. Etiology not obvious. We will give supplemental potassium and recheck labs in a.m. - Subjective Interval history: October 03. He has no new complaints. He still feels dyspneic. - Constitutional Vitals: Temp Pulse Resp BP Pulse Ox 97.5 F L 82 18 124/70 94 10/03/17 06:49 10/03/17 06:49 10/03/17 08:47 10/03/17 06:49 10/03/17 08:47 Exam: He is resting in bed and appears slightly dyspneic. Legs show no edema. His affect is overall cheerful. I reviewed his medications and lab results. Internal Medicine: Result - Labs CBC & Chem 7: 10/03/17 04:46 10/03/17 04:46 Labs: Short CBC 10/03/17 Range/Units 04:46 WBC 4.8 (4.3-11.1) K/mcL Hgb 11.2 L D (12.9-16.9) g/dL Hct 34.4 L (37.5-50.1) % Plt Count 194 (140-400) K/mcL Neutrophils # 2.5 (1.6-8.9) K/mcL BMP 10/03/17 04:46 Sodium 141 Potassium 3.0 L Chloride 105 Carbon Dioxide 24 BUN 26 H Creatinine 0.85 Glucose 103 Calcium 8.1 L Liver Function 10/03/17 Range/Units 04:46 Total Bilirubin 0.2 L (0.3-1.0) mg/dL AST 89 H (13-39) Units/L ALT 68 H (7-52) Units/L Alkaline Phosphatase 111 H (34-104) Units/L Albumin 2.8 L (3.5-5.7) g/dL - VTE Reasons for not Prescribing Prophylaxis: Treatment not Indicated - Low risk for VTE Consult Discharge Plan - Plan Referrals: Turner Pimentel MD [Primary Care Provider] - 1 week
[2017-10-03] MEDS ORDERED: Bumetanide 1 MG TABLET PO ONE (09:59)
[2017-10-03] MEDS: Isosorbide MONOnitrate (24 HR) 30 MG TAB.ER.24H PO SCH (12:52)
[2017-10-03] MEDS: OLANZapine 5 MG TAB.RAPDIS PO SCH (21:07)
[2017-10-04] MEDS: Ipratropium/Albuterol Neb 3 ML IH SCH ×3 (00:29→08:24)
[2017-10-04 06:00] LABS: Basophils % 0.2 %; Eosinophils # 0.1 K/mcL (0.0-0.6); Hematocrit 33.4 % (37.5-50.1); Hemoglobin 10.8 g/dL (12.9-16.9); Immature Granulocytes % 0.4 % (0-4); Lymphocytes # 1.5 K/mcL (0.6-4.6); Lymphocytes % 29.2 %; Mean Corpuscular HGB Conc 32.3 g/dL (31.6-35.5); Mean Corpuscular Volume 89.5 fL (83.0-100.0); Mean Platelet Volume 11.8 fL (9.4-12.4); Monocytes # 0.4 K/mcL (0.0-1.3); Monocytes % 8.8 %; Platelet Count 207 K/mcL (140-400); Red Blood Count 3.73 M/mcL (4.19-5.50); Red Cell Distribution Width 14.1 % (11.5-14.5); Segmented Neutrophils % 59.4 %
[2017-10-04] MEDS ORDERED: *HR* Enoxaparin 40 MG/0.4 ML SYRINGE SQ SCH (06:00)
[2017-10-04 06:20] LABS: Alanine Aminotransferase 63 Units/L (7-52); Albumin 2.9 g/dL (3.5-5.7); Alkaline Phosphatase 114 Units/L (34-104); Aspartate Amino Transferase 59 Units/L (13-39); BUN/Creatinine Ratio 30 (6-26); Bilirubin,Total 0.3 mg/dL (0.3-1.0); Blood Urea Nitrogen 21 mg/dL (8-23); Calcium 8.2 mg/dL (8.6-10.3); Carbon Dioxide 24 mEq/L (23-29); Chloride 109 mEq/L (98-107); Glucose 105 mg/dL (70-105); Osmolality,Calculated 295 (280-300); Potassium 3.5 mEq/L (3.5-5.1); Sodium 141 mEq/L (136-145); Total Protein 5.9 g/dL (6.4-8.9); eGFR For Non-African Americans > 60 (> 60)
[2017-10-04 07:38] VITALS: BP 117/69
[2017-10-04] MEDS: Multivit/Ca/Min/Fe/FA 1 TAB TABLET PO SCH (10:20)
[2017-10-04] MEDS: Isosorbide MONOnitrate (24 HR) 30 MG TAB.ER.24H PO SCH (10:20)
[2017-10-04] MEDS: traZODone 50 MG TABLET PO SCH (10:28)
--- NOTE | 2017-10-04 11:06 | Discharge Summary ---
Date of Encounter: 10/04/17 Time of Encounter: 10:55 - Discharge Diagnosis (1) Influenza A Priority: Primary Status: Acute (2) Acute exacerbation of chronic obstructive airways disease Priority: Secondary Status: Acute (3) Hypothyroidism Priority: Secondary Status: Chronic Qualifiers: Hypothyroidism type: unspecified Qualified Code(s): E03.9 - Hypothyroidism , unspecified (4) Left hemiparesis Priority: Secondary Status: Chronic (5) Elevated brain natriuretic peptide (BNP) level Priority: Secondary Status: Acute (6) Hypokalemia Priority: Secondary Status: Resolved - Discharge Medications Prescriptions: Bumetanide 0.5 mg PO Q48H 365 Days tablet Isosorbide MONOnitrate (24 HR) [Imdur] 30 mg PO DAILY 365 Days tab.er.24h Oseltamivir [Tamiflu] 75 mg PO BID 3 Days capsule Potassium Chloride 10 meq PO DAILY 365 Days tab.er.prt Home Medications: Bisacodyl [Woman's Laxative] 10 mg PO DAILY PRN 04/27/17 [History] Clopidogrel [Plavix] 75 mg PO DAILY 04/27/17 [History] Docusate [Colace] 100 mg PO BID 04/27/17 [History] HYDROcodone/Acet 5/325 mg [[place] 5-325 mg] 2 tab PO DAILY PRN 04/27/17 [History] Levothyroxine [Synthroid] 175 mcg PO DAILY 04/27/17 [History] MOM Conc [MILK OF MAGNESIA conc] 30 ml PO DAILY PRN 04/27/17 [History] Nortriptyline [Pamelor] 25 mg PO DAILY 04/27/17 [History] Phenytoin Sodium Extended [Phenytek] 400 mg PO DAILY 04/27/17 [History] Pramipexole [Mirapex] 0.125 mg PO DAILY 04/27/17 [History] Sertraline [Zoloft] 100 mg PO DAILY 04/27/17 [History] Vit C/Vit E AC/Lut/Mineral 1 [Prosight with Lutein Capsule] 1 each PO BID [History] Acetaminophen [Non-Aspirin Extra Strength] 500 mg PO Q6H 10/01/17 [History] Dextromethorphan HBr [Robitussin] 15 mg PO TID 10/01/17 [History] OLANZapine [Zyprexa] 5 mg PO HS 02/12/18 [History] Bumetanide 0.5 mg PO Q48H 365 Days tablet 10/04/17 [Rx] Isosorbide MONOnitrate (24 HR) [Imdur] 30 mg PO DAILY 365 Days tab.er.24h 10/04 [Rx] Oseltamivir [Tamiflu] 75 mg PO BID 3 Days capsule 10/04/17 [Rx] Potassium Chloride 10 meq PO DAILY 365 Days tab.er.prt 10/04/17 [Rx] traZODone [TraZODone] 25 mg PO HS #0 10/04/17 [Rx] Allergies/Adverse Reactions: 3 Allergy/AdvReac Type Severity Reaction Status Date / Time No Known Allergies Allergy Verified 09/26/15 10:21 Date of admission: 10/03/17 17:10 Primary care physician: Turner Pimentel MD - Patient Status Disposition: Transfer SNF Condition: Fair Functional capacity at discharge: wheelchair bound Overall status at discharge: patient is progressing back to baseline - Discharge Instructions Follow Up With: Turner Pimentel MD [Primary Care Provider] - 1 week - Diet and Activity Activity: resume usual activities as tolerated Diet: advance to your usual diet Hospital course: Mr. Moody is a 77 year old male who was sent to emergency room [facility] dyspnea and cough. He was evaluated in emergency room and found to have influenza A. Chest x-ray showed bibasilar airspace disease likely atelectasis. He had normal WBC but left shift was present. There was significantly elevated troponin but family declined further aggressive workup. He was admitted to [facility] floor for ongoing care needs. Initial orders were written by the emergency room physician. I saw him on October 02 and performed a history and physical. He was started on Tamiflu for influenza A. He had good clinical response with WBC remaining normal and resolution of left shift. He remained afebrile during his hospital stay. He will continue Tamiflu to complete a 5 day course. IV fluids were initially given and creatinine decreased to 0.71 by day of discharge with estimated GFR greater than 60. BN peptide returned elevated at 1294. He was started on Imdur and will be given Bumex every other day with supplemental [facility] at the jail. Labs will be monitored. TSH returned normal at 2.662. He complained of pain in his hips following a fall at the jail a few days before admission. CT of the right hip showed no evidence of fracture. A left hip x-ray done day of discharge showed no evidence of fracture or dislocation. On October 04 he was stable for discharge back to [place] where he will follow with me. - Time Spent with Patient Total time spent providing and/or coordinating discharge services: - Constitutional Vitals: Temp Pulse Resp BP Pulse Ox 98.7 F 77 22 117/69 97 10/04/17 06:27 10/04/17 06:27 10/04/17 08:24 10/04/17 06:27 10/04/17 08:24 - VTE Reasons for not Prescribing Prophylaxis: Treatment not Indicated - Low risk for VTE
--- NOTE | 2017-10-04 11:14 | Physician Discharge Referral ---
[facility] Referral Info Transfer To: [facility] Provider in Charge: Margarito Provider in Charge after Transfer: PCP (Margarito) - Diagnosis (1) Influenza A Priority: Primary Status: Acute (2) Acute exacerbation of chronic obstructive airways disease Priority: Secondary Status: Acute (3) Hypothyroidism Priority: Secondary Status: Chronic (4) Left hemiparesis Priority: Secondary Status: Chronic (5) Elevated brain natriuretic peptide (BNP) level Status: Acute (6) Hypokalemia Priority: Secondary Status: Resolved Prognosis: Fair Aware of Diagnosis: Family Aware of Prognosis: Family - Transfer Medications Prescriptions: Bumetanide 0.5 mg PO Q48H 365 Days tablet Isosorbide MONOnitrate (24 HR) [Imdur] 30 mg PO DAILY 365 Days tab.er.24h Oseltamivir [Tamiflu] 75 mg PO BID 3 Days capsule Potassium Chloride 10 meq PO DAILY 365 Days tab.er.prt Home Medications: Bisacodyl [Woman's Laxative] 10 mg PO DAILY PRN 04/27/17 [History] Clopidogrel [Plavix] 75 mg PO DAILY 04/27/17 [History] Docusate [Colace] 100 mg PO BID 04/27/17 [History] HYDROcodone/Acet 5/325 mg [[place] 5-325 mg] 2 tab PO DAILY PRN 04/27/17 [History] Levothyroxine [Synthroid] 175 mcg PO DAILY 04/27/17 [History] MOM Conc [MILK OF MAGNESIA conc] 30 ml PO DAILY PRN 04/27/17 [History] Nortriptyline [Pamelor] 25 mg PO DAILY 04/27/17 [History] Phenytoin Sodium Extended [Phenytek] 400 mg PO DAILY 04/27/17 [History] Pramipexole [Mirapex] 0.125 mg PO DAILY 04/27/17 [History] Sertraline [Zoloft] 100 mg PO DAILY 04/27/17 [History] Vit C/Vit E AC/Lut/Mineral 1 [Prosight with Lutein Capsule] 1 each PO BID [History] Acetaminophen [Non-Aspirin Extra Strength] 500 mg PO Q6H 10/01/17 [History] Dextromethorphan HBr [Robitussin] 15 mg PO TID 10/01/17 [History] OLANZapine [Zyprexa] 5 mg PO HS 10/01/17 [History] Bumetanide 0.5 mg PO Q48H 365 Days tablet 10/04/17 [Rx] Isosorbide MONOnitrate (24 HR) [Imdur] 30 mg PO DAILY 365 Days tab.er.24h 10/04 [Rx] Oseltamivir [Tamiflu] 75 mg PO BID 3 Days capsule 10/04/17 [Rx] Potassium Chloride 10 meq PO DAILY 365 Days tab.er.prt 10/04/17 [Rx] traZODone [TraZODone] 25 mg PO HS #0 10/04/17 [Rx] Allergies/Adverse Reactions: 3 Allergy/AdvReac Type Severity Reaction Status Date / Time No Known Allergies Allergy Verified 09/26/15 10:21 - Respiratory Orders Oxygen / L per min (2 L/m by nasal cannula as needed to keep sat greater than 90 %.) Smoking Cessation: Smoking cessation has been advised. For more information, call the [employer] Tobacco Quit Line at 8-502-HLTG-NOW. - Lab Orders Lab Orders: Other (include drug levels w/frequency) (CBC, BMP, Bn peptide in 5 days) - Advance Directives Code Status: DNR-Comfort Care - Rehabiliation Orders Rehab Potential: Fair - Diet Orders Mechanical Soft (Cardwell thick liquids) CERTIFICATION: I certify that the transfer of the above named patient to an Extended Care Facility is necessary for the continuing treatment of the diagnosis listed. The above information is true and accurate reflection of patient's current condition. Confidential - Redisclosure prohibited without a patient's written consent.
== END 2017-10-04 14:25 | DRG 194 ==
LOC: INPPIK 18:57 → EMEROOPIK 18:57 → INPPIK 23:13
PROVIDERS: ADMIT Internal Medicine; ATTEND Internal Medicine